=== PATIENT | female | born 1980 | race Caucasian/White ===

== ENCOUNTER → 2017-06-28 | Outpatient (CLI) | payer MEDICAID ==
[~2017-06-28] MED LIST: AMOXIL500 M1 PO; ANAPROX275 MG PO; EFFEXOR XR37.5 MG PO; FERROUS SULFAT325 M2 PO; KLONOPIN0.5 M1 PO; MOTRIN400 MG PO; PERCOCET 5/3251 EACH PO; PHENERGAN 25MG.25 M1 PO; PHENERGAN 25MG.25 MG PR; PREDNISONE 20MG20 MG PO; PRENATAL PLUS1 TA1 PO; PROZAC20 MG PO; XANAX1 MG PO; ZANTAC 150150 MG PO; ZITHROMAX Z PA250 MG PO; Zofran4 MG PO
--- NOTE | 2017-06-28 14:39 | RADIOLOGY REPORT PS360 ---
US BREAST-LT COMPLETE W/AXILLA survey ORDERING PHYSICIAN : Chon Lopez MD PATIENT AGE: 37 years GENDER: Female COMPARISON: No previous studies INDICATION: Fullness left breast vague palpable area and fullness left breast TECHNIQUE: Ultrasound entire left breast included axilla survey FINDINGS: . LEFT BREAST:Ultrasound reveals no cyst nor dominant mass. No architectural irregularity evident on this survey.. stable benign lymph nodes at left axilla. . (Also*Negative imaging should not preclude biopsy of any clinically suspicious area) ----- IMPRESSION: No areas of concern at left breast on today's Ultrasound survey. No mass evident. No cyst. If palpable asymmetry of persist & remains a concern suggest follow-up bilateral mammogram BI-RADS CATEGORY: 2_Benign RECOMMENDED FOLLOWUP: 12M 12 MONTH FOLLOW-UP The palpable area should persist consider follow-up bilateral mammogram (A letter has been sent to the patient regarding results of the study.)
== END ==
LOC: RAD 10:44
DX: N63.20 Unspecified lump in the left breast, unspecified quadrant (principal)